=== PATIENT | female | born 1970 | race Caucasian/White ===

== ENCOUNTER → 2018-03-28 | Outpatient (CLI) | payer OTHER | LOC: M.RAD 07:49 | DX: Z12.31 Encounter for screening mammogram for malignant neoplasm of breast (principal) ==

== ENCOUNTER → 2019-07-16 | Outpatient (CLI) | payer OTHER | LOC: M.RAD 06:43 | DX: Z12.31 Encounter for screening mammogram for malignant neoplasm of breast (principal) ==